=== PATIENT | male | born 1970 | race Caucasian/White ===

== ENCOUNTER 2017-08-20 10:27 | Emergency (ER) | payer MEDICAID, OTHER ==
[~2017-08-20] VITALS: Ht 180.3 cm; Wt 82.5 kg
[2017-08-20 10:30] VITALS: Ht 180.3 cm; Wt 82.5 kg
[2017-08-20] MEDS ORDERED: CEPH-443 PO (11:00)
[2017-08-20] MEDS ORDERED: SULF1TAB31 PO (11:00)
--- NOTE | 2017-08-20 11:07 | ERA ---
ER Documentation Chief Complaint Date/Time DATE: 08/20/17 TIME: 11:02 Chief Complaint abscess @ tesfaye anal area HPI 46-year-old male presents with a chief complaint of abscess in the perianal area between the scrotum and the anus 3 days. Patient had similar symptoms in the past that was relieved with antibiotics. Patient went to an urgent care last night. Urgent care said that the area was not drainable. Could not get a prescription for antibiotics due to lack of insurance. Patient states that his patient denies fever, chills, use of medications to relieve the symptoms. Patient has no other complaints and describes no other associated manifestations. Nursing notes have been reviewed and are consistent with history given. ROS All systems reviewed and are negative except as per history of present illness. Medications Home Meds Active Scripts Cephalexin* (Keflex*) 500 Mg Capsule, 500 MG PO QID for 5 Days, CAP Prov:JELLY OLIVARES PA-C 08/20/17 Sulfamethoxazole/Trimethoprim* (Bactrim Ds* Tablet) 1 Each Tablet, 1 TAB PO BID , #14 TAB Prov:JELLY OLIVARES PA-C 08/20/17 PMhx/Soc Medical and Surgical Hx: pt denies Medical Hx, pt denies Surgical Hx Hx Alcohol Use: No Hx Substance Use: No Hx Tobacco Use: No Smoking Status: Never smoker Physical Exam Vitals Vital Signs Date Time Temp Pulse Resp B/P Pulse Ox O2 Delivery O2 Flow Rate FiO2 08/20/17 10:30 98.2 88 17 109/74 94 Physical Exam Const: Healthy-appearing. Well-nourished. Well-developed. No acute distress. Skin: 3 cm erythematous warm area underneath the scrotum. Tender. Does not reach the rectal area. Nonfluctuant. Ext: No cyanosis or edema noted. Head: Normocephalic. Eyes: Non-injected; No scleral erythema, or discharge. EOMI and EV bilaterally. Ears: Normal External Ears, EACs clear, TM normal bilaterally without erythema. Nose: Normal nose without discharge, septal deviation, or sinus tenderness. Oral: No oral edema visualized. Mucous membranes moist and pink. Neck: No cervical lymphadenopathy, or masses. Trachea midline. Supple ~ No meningismus. Pulm: Good air movement in upper and lower respiratory tracts. No dyspnea, stridor, tripoding or drooling. Clear to auscultation bilaterally. Cardio: Regular rate and rhythm. No JVD grossly observed. Radial and posterior tibial pulses 2+ bilaterally. No cyanosis. Capillary refill less than 2 seconds. Abd: Soft, non tender, non distended. No guarding. Normal bowel sounds. MS: Normal motor strength, normal tone with gross examination. Back: No midline or flank tenderness. Neur: Neurovascularly intact bilaterally. Awake, alert and oriented x3. Procedures/MDM Well-appearing otherwise healthy 46-year-old male with a chief complaint of abscess. Denies any systemic symptoms. Abscess is below his scrotum and is nonfluctuant. Is not to be drained at this time. I told him I was going to get an ultrasound which the patient refused. I do not believe from the physical exam that this abscess is drainable at this time. Keflex and Bactrim will be prescribed. I have spoke with the patient regarding their condition and future management. They have verbally responded that they understand their status and treatment plan. The patients vitals are stable, and their current condition is appropriate for discharge. The patient will be given discharge instructions with return precautions. Departure Diagnosis: Primary Impression: Abscess Condition: Stable Patient Instructions: Abscess, Antiobiotic Treatment Only Additional Instructions: Follow up with your PCP within the next 1-3 days for a more thorough evaluation and a possible referral to a specialist. Return the the emergency department immediately if symptoms worsen or change. If you have any questions regarding medications, ask your pharmacist or us before you leave. If any adverse reactions occur while taking your medications, discontinue the treatment and return to the emergency department immediately. Take your medications as directed, and complete the entire course of treatment. JELLY OLIVARES PA-C Aug 20, 2017 11:07
== END 2017-08-20 11:40 | disposition home or self-care (01) ==
LOC: FTE 10:27
DX: K61.0 Anal abscess (principal)
CPT/HCPCS: 99284

== ENCOUNTER 2017-08-24 08:51 | Emergency (ER) | payer MEDICAID ==
[~2017-08-24] VITALS: Ht 180.3 cm; Wt 81.0 kg
[~2017-08-24 08:51] MED LIST: CEPH-443 PO; SULF1TAB31 PO
[2017-08-24 08:53] VITALS: Ht 180.3 cm; Wt 81.0 kg
[2017-08-24] MEDS ORDERED: SOD CHLORIDE 0.9% 1,000 ML IV STA (09:40)
[2017-08-24] MEDS ORDERED: KETOROLAC 30 MG INJ IV STA (09:40)
[2017-08-24] MEDS ORDERED: AMPICILLIN/SULB 3 GM/NS (PMX) 100 ML IVPB ONE (10:00)
[2017-08-24 10:06] LABS: ADD UMIC YES; UR ASCORBIC ACID NEGATIVE (NEGATIVE); UR BILIRUBIN (Dip) NEGATIVE (NEGATIVE); UR BLOOD (Dip) 1+ mg/dL (NEGATIVE); UR CLARITY CLEAR (CLEAR); UR COLOR YELLOW (YELLOW); UR GLUCOSE (Dip) NEGATIVE (NEGATIVE); UR KETONES (Dip) NEGATIVE (NEGATIVE); UR LEUKOCYTE ESTERASE (Dip) NEGATIVE Leu/ul (NEGATIVE); UR NITRITE (Dip) NEGATIVE (NEGATIVE); UR RBC 1 /HPF (0-5); UR SPECIFIC GRAVITY (Dip) 1.008 (1.003-1.030); UR TOTAL PROTEIN (Dip) NEGATIVE (NEGATIVE); UR UROBILINOGEN (Dip) NEGATIVE (NEGATIVE)
[2017-08-24 10:06] LABS: BASOPHIL # 0.1 10^3/ul (0.0-0.1); BASOPHILS % 0.9 % (0.0-2.0); EOSINOPHILS # 0.3 10^3/ul (0.0-0.5); EOSINOPHILS % 4.1 % (0.0-7.0); HEMATOCRIT 43.1 % (42.0-52.0); LYMPHOCYTES # 1.4 10^3/ul (0.8-2.9); LYMPHOCYTES % 17.2 % (15.0-51.0); MEAN CORPUSCULAR HGB CONC 34.8 g/dl (32.0-37.0); MEAN CORPUSCULAR VOLUME 86.2 fl (82.0-101.0); MEAN PLATELET VOLUME 9.8 fl (7.4-10.4); MONOCYTE # 0.9 10^3/ul (0.3-0.9); MONOCYTES % 10.9 % (0.0-11.0); NEUTROPHIL # 5.4 10^3/ul (1.6-7.5); NEUTROPHILS % 66.4 % (39.0-77.0); PLATELET COUNT 342 10^3/UL (140-415); RED CELL DISTRIBUTION WIDTH 12.4 % (11.5-14.5); WHITE BLOOD COUNT 8.1 10^3/ul (4.8-10.8)
[2017-08-24 10:20] LABS: ALBUMIN 4.5 g/dl (3.3-4.9); ALBUMIN/GLOBULIN RATIO 1.28; BILIRUBIN,INDIRECT 0.4 mg/dl (0-1.1); BILIRUBIN,TOTAL 0.4 mg/dl (0.2-1.3); CALCIUM 9.3 mg/dl (8.4-10.2); CREATININE 1.03 mg/dl (0.61-1.24); POTASSIUM 4.5 mmol/L (3.5-5.1)
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
[2017-08-24] MEDS ORDERED: SULF1TAB31 PO (12:12)
[2017-08-24] MEDS ORDERED: CEPH-443 PO (12:12)
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
== END 2017-08-24 12:34 | disposition home or self-care (01) ==
LOC: FTE 08:51
DX: N49.2 Inflammatory disorders of scrotum (principal)
CPT/HCPCS: 36415; 76536; 80053; 81001; 85025; 96365; 96375; J0295; J1885; J7030; Z7502